=== PATIENT | male | born 1945 | race African-American/Black ===

== ENCOUNTER 2021-02-20 21:34 | Emergency (ER) | payer MEDICARE, OTHER ==
[~2021-02-20] VITALS: Ht 182.9 cm; Wt 94.3 kg
[2021-02-20] MEDS ORDERED: Flonase 0.05% N16 GM (21:47)
[2021-02-20] MEDS ORDERED: ALBU90OI INH (21:47)
[2021-02-20 22:04] LABS: BASOPHILS ABSOLUTE AUTO 0.06 K/mm3 (0.00-0.23); BASOPHILS PERCENT AUTO 1 % (0-2); EOSINOPHILS PERCENT AUTO 5 % (0-6); Hematocrit 43.7 % (37.0-53.0); IMMATURE GRAN ABSOLUTE AUTO 0.02 K/mm3 (0.00-0.10); IMMATURE GRAN PERCENT AUTO 0 % (0-1); LYMPHOCYTES ABSOLUTE AUTO 2.16 K/mm3 (0.84-5.20); LYMPHOCYTES PERCENT AUTO 28 % (21-46); MONOCYTES PERCENT AUTO 13 % (4-13); Mean Corpuscular HGB 28.5 pg (26.0-34.0); Mean Corpuscular Volume 89 fL (80-100); Mean Platelet Volume 11.1 fL (9.1-12.4); NEUTROPHILS ABSOLUTE AUTO 4.17 K/mm3 (1.96-9.15); NEUTROPHILS PERCENT AUTO 53 % (41-73); Platelet Count 162 K/mm3 (150-400); RDW Coefficient Variation 13.8 % (11.7-14.2); RDW Standard Deviation 45.1 fL (35.1-46.3); Red Blood Cell Count 4.92 M/mm3 (4.30-5.90); White Blood Cell Count 7.81 K/mm3 (4.00-11.30)
[2021-02-20 22:41] LABS: Influenza A, PCR NEGATIVE (NEGATIVE); Influenza B, PCR NEGATIVE (NEGATIVE); Resp Syncytial Virus, PCR NEGATIVE (NEGATIVE); SARS-Cov-2 (COVID-19) PCR, MMC NEGATIVE (NEGATIVE)
[2021-02-20 22:55] LABS: Alanine Aminotransfer (ALT/SGP 22 U/L (12-78); Albumin, Blood 3.4 g/dL (3.4-5.0); Albumin/Globulin Ratio 0.8 (0.8-1.8); Alk Phos 91 U/L (50-136); Anion Gap 8 mmol/L (6-16); Aspartate Aminotrans (AST/SGOT 49 U/L (12-37); Bilirubin, Total 0.4 mg/dL (0.1-1.0); Blood Urea Nitrogen 6 mg/dL (8-24); CO2, Blood 24 mmol/L (21-32); Calcium, Blood 8.6 mg/dL (8.5-10.1); Chloride, Blood 108 mmol/L (98-108); Creatinine, Blood 0.85 mg/dL (0.60-1.20); Globulin, Blood 4.2 g/dL (2.2-4.0); Glomerular Filtration Rate >60 (60-); Glucose, Blood 105 mg/dL (70-99); Potassium, Blood 4.5 mmol/L (3.5-5.5); Sodium, Blood 140 mmol/L (136-145); Total Protein, Blood 7.6 g/dL (6.4-8.2)
[2021-02-21] LABS: Troponin I <0.015 ng/mL (0.000-0.040)
[2021-02-21] MEDS ORDERED: LEVO750 PO (00:41)
[2021-02-21] MEDS ORDERED: PRED20 PO (00:41)
== END 2021-02-21 01:15 | disposition home or self-care (01) ==
LOC: ER 21:34
PROVIDERS: Emergency Medicine
DX: J44.1 Chronic obstructive pulmonary disease with (acute) exacerbation (principal); Z20.822 Contact with and (suspected) exposure to COVID-19; F17.200 Nicotine dependence, unspecified, uncomplicated
CPT/HCPCS: 0241U; 71045; 80053; 84484; 85025; 93005; 93010; 94644; 99285-25; A9270

== ENCOUNTER 2021-10-15 11:44 | Day surgery (SDC) | payer OTHER ==
[~2021-10-15] VITALS: Ht 182.9 cm; Wt 94.4 kg
[~2021-10-15 11:44] MED LIST: ALBU90OI INH; Flonase 0.05% N16 GM; LEVO750 PO; PRED20 PO
[2021-10-15] MEDS ORDERED: TRAZ50 PO (12:29)
== END 2021-10-15 14:04 | disposition home or self-care (01) ==
LOC: ORSCSDS 11:44
PROVIDERS: Ophthalmology
PROC: 08RJ3JZ Replacement of Right Lens with Synthetic Substitute, Percutaneous Approach (ICD-10-PCS; principal; 2021-10-15 13:00)
DX: H25.11 Age-related nuclear cataract, right eye (principal); J44.9 Chronic obstructive pulmonary disease, unspecified; I10 Essential (primary) hypertension; Z79.899 Other long term (current) drug therapy
CPT/HCPCS: J2001; J2250; J3010; J3301; V2632

== ENCOUNTER 2022-02-27 04:41 | Inpatient (IN) | payer OTHER ==
[~2022-02-27] VITALS: Ht 182.9 cm; Wt 86.5 kg
[~2022-02-27 04:41] MED LIST changes: +AZIT250 PO; +CARVEDILOL3.125 MG PO; +IBUP800 PO; +IPRAT-ALBUT 0.5-3 ML INH; +OMEP20ER PO; +REMERON30 M8 PO; +Robaxin750 MG PO; +TAMSULOSIN HCL0.4 M1 PO; +TRAM50 PO; +TRAZ50 PO
[2022-02-27 05:20] LABS: BASOPHILS ABSOLUTE AUTO 0.06 K/mm3 (0.00-0.23); BASOPHILS PERCENT AUTO 0 % (0-2); EOSINOPHILS ABSOLUTE AUTO 0.02 K/mm3 (0.00-0.68); EOSINOPHILS PERCENT AUTO 0 % (0-6); Hemoglobin 11.2 g/dL (13.5-17.5); IMMATURE GRAN ABSOLUTE AUTO 0.09 K/mm3 (0.00-0.10); IMMATURE GRAN PERCENT AUTO 1 % (0-1); LYMPHOCYTES ABSOLUTE AUTO 0.87 K/mm3 (0.84-5.20); LYMPHOCYTES PERCENT AUTO 6 % (21-46); MONOCYTES ABSOLUTE AUTO 1.27 K/mm3 (0.16-1.47); MONOCYTES PERCENT AUTO 8 % (4-13); Mean Corpuscular HGB 22.1 pg (26.0-34.0); Mean Corpuscular HGB Conc 30.3 g/dL (31.5-36.5); Mean Corpuscular Volume 73 fL (80-100); Mean Platelet Volume 9.6 fL (9.1-12.4); NEUTROPHILS ABSOLUTE AUTO 13.51 K/mm3 (1.96-9.15); NEUTROPHILS PERCENT AUTO 85 % (41-73); Platelet Count 219 K/mm3 (150-400); RDW Coefficient Variation 17.8 % (11.7-14.2); RDW Standard Deviation 46.4 fL (35.1-46.3); Red Blood Cell Count 5.06 M/mm3 (4.30-5.90); White Blood Cell Count 15.82 K/mm3 (4.00-11.30)
[2022-02-27 05:42] LABS: Albumin, Blood 3.2 g/dL (3.4-5.0); Albumin/Globulin Ratio 0.6 (0.8-1.8); Bilirubin, Total 1.1 mg/dL (0.1-1.0); Bun/Creatinine Ratio 13.6 (12.0-20.0); Calcium, Blood 9.4 mg/dL (8.5-10.1); Creatinine, Blood 1.25 mg/dL (0.60-1.20); Globulin, Blood 5.7 g/dL (2.2-4.0); Potassium, Blood 3.4 mmol/L (3.5-5.5); Total Protein, Blood 8.9 g/dL (6.4-8.2)
[2022-02-27 05:58] LABS: Influenza A, PCR NEGATIVE (NEGATIVE); Influenza B, PCR NEGATIVE (NEGATIVE); Resp Syncytial Virus, PCR NEGATIVE (NEGATIVE); SARS-Cov-2 (COVID-19) PCR, MMC NEGATIVE (NEGATIVE)
[2022-02-27 06:25] LABS: Phosphorus, Blood 3.1 mg/dL (2.5-4.9)
[2022-02-27 11:24] LABS: Source, Urine Clean Catch
[2022-02-27 11:28] LABS: Appearance, Urine Clear (Clear); Bilirubin, Urine Neg (Neg); Blood, Urine Neg (Neg); Color, Urine Yellow (P-Yellow); Glucose Qualitative, Urine Neg (Neg); Ketones, Urine 1+ (Neg); Leukocyte Esterase, Urine 1+ (Neg); Nitrite, Urine Neg (Neg); Protein, Urine 2+ (Neg); Urobilinogen, Urine 1+ (Normal)
[2022-02-27 11:40] LABS: Red Blood Cells, Urine 0-2 /hpf (0-2); Squamous Epithelial Cells Not Seen /hpf (Few)
[2022-02-27 11:42] LABS: Bacteria Mod /hpf
[2022-02-27 11:43] LABS: Mucus Light (0-Heavy)
[2022-02-27 11:47] LABS: Renal Tubular Epi Cast 0-2 /lpf (0)
--- NOTE | 2022-02-27 11:56 | NUR ---
UPDATE TOOK PT TO BSC. PT AUDIBLY WHEEZING AND SOB. RT CALLED FOR BREATHING TX. RT IN ROOM, ASKED FOR THIS RN TO ASK MD FOR BD PROTOCOL AND AIRDUO. CALL PLACED TO MD OLIVIER. MD OLIVIER WITH ORDERS FOR BD PROTOCOL AND AIRDUO BID.
--- NOTE | 2022-02-27 16:41 | NUR ---
updated Updated pt's , Raquel. Can be reached at [phone]
--- NOTE | 2022-02-27 17:53 | NUR ---
SHIFT SUMMARY PT ALERT, ORIENTED, SLEEPY. SP02>90% ON 2L NC. PT AUDIBLY WHEEZY THIS SHIFT, CALL PLACED TO RT FOR BREATHING TX. DYSPNEA W/ AMBULATION, KEEPING PT TO BSC D/T SOB, URINAL TO VOID . TELEMETRY SHOWED AFIB HR 100'S UPON CARE ASSUMPTION. AROUND 1400, PT CONVERTED TO NSR W/ PAC & PVC'S, HR 60'S-70'S. K+ INFUSED PER EMAR. ABX INFUSED PER EMAR. PT'S , YOHAAN, STOPPED BY, LEFT NUMBER, SEE PREVIOUS NOTE. PT SLEEPING IN ROOM, CALL LIGHT IN REACH.
--- NOTE | 2022-02-27 19:53 | NUR ---
ASSUMED PT CARE FORM BOOKER HU ON . PT RESTING IN BED, DOWSY, OPENS EYES BRIEFLY WHEN ADDRESSED BUT UNABLE TO KEEP AWAKE. REMOVED COVERS AND SHIFTED PT. PT WAKES UP, ABLE TO HAVE INTERACTIVE CONVERSATION WTIHOUT FALLING ASLEEP. INDICATES HE IS NOT USUALLY THIS SLEEPY AT HOME. ORIENTED X 4. DENIES FEELINGS OF SOB OR CHEST PAIN. SATING AT 96% ON 1 LPM, REMOVED FROM O2, STILL SATING AT 93%, WILL MONITOR. BED BATH PROVIDED FOR COMFORT. SITTING UP IN BED EATING DINNER. CALL LIGHT IN REACH.
--- NOTE | 2022-02-27 21:17 | NUR ---
PT IS NOW WIDE AWAKE, SITTING UP IN BED WATCHING TV. ABLE TO FEED SELF DINNER. NO SIGNS OF DROWSYNESS AT THIS TIME.
[2022-02-28 04:46] LABS: BASOPHILS ABSOLUTE AUTO 0.03 K/mm3 (0.00-0.23); BASOPHILS PERCENT AUTO 0 % (0-2); EOSINOPHILS ABSOLUTE AUTO 0.49 K/mm3 (0.00-0.68); EOSINOPHILS PERCENT AUTO 2 % (0-6); Hematocrit 29.9 % (37.0-53.0); Hemoglobin 8.9 g/dL (13.5-17.5); IMMATURE GRAN ABSOLUTE AUTO 0.63 K/mm3 (0.00-0.10); IMMATURE GRAN PERCENT AUTO 3 % (0-1); LYMPHOCYTES PERCENT AUTO 1 % (21-46); MONOCYTES ABSOLUTE AUTO 1.05 K/mm3 (0.16-1.47); MONOCYTES PERCENT AUTO 4 % (4-13); Mean Corpuscular HGB 21.8 pg (26.0-34.0); Mean Corpuscular HGB Conc 29.8 g/dL (31.5-36.5); Mean Corpuscular Volume 73 fL (80-100); Mean Platelet Volume 10.3 fL (9.1-12.4); NEUTROPHILS ABSOLUTE AUTO 21.45 K/mm3 (1.96-9.15); NEUTROPHILS PERCENT AUTO 90 % (41-73); Platelet Count 190 K/mm3 (150-400); RDW Coefficient Variation 17.5 % (11.7-14.2); RDW Standard Deviation 46.5 fL (35.1-46.3); Red Blood Cell Count 4.08 M/mm3 (4.30-5.90); White Blood Cell Count 23.95 K/mm3 (4.00-11.30)
--- NOTE | 2022-02-28 04:57 | NUR ---
SHIFT SUMMARY: NO ACUTE CHANGES DURING THIS SHIFT. PT WIDE AWAKE UNTIL APPROXIMATELY 0000. SLEEPING THROUGHOUT NIGHT, REPSONDS TO NOISE BUT DOES NOT WAKE COMPLETELY. WILL MONITOR. PT ON RA WHEN SLEEPING WITH O2 SATS MAINTAINING O2> 92%. CALL LIGHT IN REACH.
[2022-02-28 05:03] LABS: Bun/Creatinine Ratio 17.8 (12.0-20.0); Calcium, Blood 8.5 mg/dL (8.5-10.1); Creatinine, Blood 1.01 mg/dL (0.60-1.20); Potassium, Blood 3.7 mmol/L (3.5-5.5)
[2022-02-28] MEDS ORDERED: FURO20 PO (10:18)
[2022-02-28] MEDS ORDERED: LISI20 PO (10:20)
[2022-02-28] MEDS ORDERED: METOPROLOL SUCC25 MG PO (10:21)
[2022-02-28] MEDS ORDERED: BACLOFEN10 M4 PO (10:35)
[2022-02-28] MEDS ORDERED: NAPROXEN500 MG PO (10:35)
[2022-02-28] MEDS ORDERED: AZIT500 PO (10:48)
[2022-02-28] MEDS ORDERED: CEFD300 PO (10:48)
[2022-02-28] MEDS ORDERED: PRED20 PO (10:49)
[2022-02-28] MEDS ORDERED: TRAM50 PO (10:50)
--- NOTE | 2022-02-28 14:08 | NUR ---
DISCHARGE PT ALERT, ORIENTED. SP02>90% ON RA, VSS. PT AMBULATED TO WHEELCHAIR INDEPENDENTLY. DAUGHTER IN ROOM TO HELP GET PT DRESSED. IV REMOVED. TELEMETRY REMOVED. PT WHEELED TO ER ENTRANCE, DAUGHTER RIDE IN PRIVATE VEHICLE. PT W/ ALL PT'S BELONGS.
== END 2022-02-28 13:15 | disposition home or self-care (01) | DRG 871 ==
LOC: ER 04:41 → PCU 06:01
PROVIDERS: Student in an Organized Health Care Education/Training Program; ADMIT Internal Medicine
DX: A41.9 Sepsis, unspecified organism (principal); J18.9 Pneumonia, unspecified organism; J96.21 Acute and chronic respiratory failure with hypoxia; N17.9 Acute kidney failure, unspecified; E87.20 Acidosis, unspecified; R65.20 Severe sepsis without septic shock; N40.0 Benign prostatic hyperplasia without lower urinary tract symptoms; I50.9 Heart failure, unspecified; I11.0 Hypertensive heart disease with heart failure; F17.210 Nicotine dependence, cigarettes, uncomplicated; J43.9 Emphysema, unspecified; N28.9 Disorder of kidney and ureter, unspecified; E87.6 Hypokalemia; Z20.822 Contact with and (suspected) exposure to COVID-19; Z88.0 Allergy status to penicillin; Z79.899 Other long term (current) drug therapy; Z79.51 Long term (current) use of inhaled steroids; Z79.52 Long term (current) use of systemic steroids; Z79.891 Long term (current) use of opiate analgesic; Z79.2 Long term (current) use of antibiotics; Z99.81 Dependence on supplemental oxygen
CPT/HCPCS: 0241U; 36415; 71045; 80048; 80053; 81001; 83605; 83880; 84100; 84484; 85025; 87086; 93005; 93010; 94640; 94644; 94664; 94760; 94762; 96374; 96375; 99285-25; A9270; J0456; J0696; J1650; J2930; J3480; J7030; J7050

== ENCOUNTER 2022-04-21 10:40 | Inpatient (IN) | payer OTHER ==
[~2022-04-21] VITALS: Ht 182.9 cm; Wt 85.2 kg
[~2022-04-21 10:40] MED LIST changes: +AZIT500 PO; +BACLOFEN10 M4 PO; +CEFD300 PO; +FURO20 PO; -IPRAT-ALBUT 0.5-3 ML INH; +IPRAT-ALBUT 0.5-3 ML NEB; +LISI20 PO; +METOPROLOL SUCC25 MG PO; +NAPROXEN500 MG PO; +TRAZ100 PO; -TRAZ50 PO
[2022-04-21 11:08] LABS: BASOPHILS ABSOLUTE AUTO 0.05 K/mm3 (0.00-0.23); BASOPHILS PERCENT AUTO 1 % (0-2); EOSINOPHILS ABSOLUTE AUTO 0.46 K/mm3 (0.00-0.68); EOSINOPHILS PERCENT AUTO 7 % (0-6); Hematocrit 34.6 % (37.0-53.0); Hemoglobin 9.9 g/dL (13.5-17.5); IMMATURE GRAN ABSOLUTE AUTO 0.01 K/mm3 (0.00-0.10); IMMATURE GRAN PERCENT AUTO 0 % (0-1); LYMPHOCYTES ABSOLUTE AUTO 2.07 K/mm3 (0.84-5.20); LYMPHOCYTES PERCENT AUTO 32 % (21-46); MONOCYTES ABSOLUTE AUTO 0.66 K/mm3 (0.16-1.47); MONOCYTES PERCENT AUTO 10 % (4-13); Mean Corpuscular HGB 20.7 pg (26.0-34.0); Mean Corpuscular HGB Conc 28.6 g/dL (31.5-36.5); Mean Corpuscular Volume 72 fL (80-100); Mean Platelet Volume 10.6 fL (9.1-12.4); NEUTROPHILS ABSOLUTE AUTO 3.23 K/mm3 (1.96-9.15); NEUTROPHILS PERCENT AUTO 50 % (41-73); Platelet Count 194 K/mm3 (150-400); RDW Standard Deviation 45.8 fL (35.1-46.3); Red Blood Cell Count 4.79 M/mm3 (4.30-5.90); White Blood Cell Count 6.48 K/mm3 (4.00-11.30)
[2022-04-21 11:42] LABS: Ethanol (Alcohol), Blood, Med <3 mg/dL
[2022-04-21 11:43] LABS: Alanine Aminotransfer (ALT/SGP 18 U/L (12-78); Albumin, Blood 2.9 g/dL (3.4-5.0); Albumin/Globulin Ratio 0.6 (0.8-1.8); Alk Phos 106 U/L (50-136); Anion Gap 4 mmol/L (6-16); Aspartate Aminotrans (AST/SGOT 19 U/L (12-37); Bilirubin, Total 0.5 mg/dL (0.1-1.0); Blood Urea Nitrogen 8 mg/dL (8-24); Bun/Creatinine Ratio 8.1 (12.0-20.0); CO2, Blood 31 mmol/L (21-32); Chloride, Blood 106 mmol/L (98-108); Creatinine, Blood 0.98 mg/dL (0.60-1.20); Globulin, Blood 4.9 g/dL (2.2-4.0); Glomerular Filtration Rate 79 (60-); Glucose, Blood 112 mg/dL (70-99); Potassium, Blood 3.1 mmol/L (3.5-5.5); Sodium, Blood 141 mmol/L (136-145); Total Protein, Blood 7.8 g/dL (6.4-8.2)
[2022-04-21 12:03] LABS: CHOL/HDL RATIO 4.4; Cholesterol 148 mg/dL (50-200); HDL Cholesterol 34 mg/dL (>39); LDL/HDL RATIO 2.8; Low Density Lipoprotein Chol 95 mg/dL (0-110); Triglycerides 94 mg/dL (30-160); Very Low Density Lipoprot Chol 18 mg/dL (6-32)
[2022-04-21 16:14] LABS: U Amphetamine Screen Not Detected; U Barbituate Screen Not Detected; U Benzodiazapine Screen Not Detected; U Buprenorphine Screen Not Detected; U Cannabinoids Screen DETECTED; U Cocaine Screen Not Detected; U Methadone Screen Not Detected; U Methamphetamine Screen Not Detected; U Opiates Screen Not Detected; U Oxycodone Screen Not Detected; U Phencyclidine Screen Not Detected; U Propoxyphene Screen Not Detected
--- NOTE | 2022-04-21 16:29 | NUR ---
RN COMPLETED A SEMINOLE SWALLOW EVAL WITH THE PATIENT. HE WAS ABLE TO STICK OUT HIS TONGUE AND MOVE IT SIDE TO SIDE, HIS FACIAL SYMMETRY IS EVEN AND HE WAS ABLE TO PUFF UP HIS CHEEKS WITH AIR AND HOLD. WHEN GIVEN 90 ML OF WATER WHILE SITTING UPRIGHT AT 90 DEGREES, THE PATIENT DID COUGH AND SAID HE FELT THAT THE WATER WENT DOWN HIS AIRWAY. PO MEDS WERE HELD AT THIS TIME.
--- NOTE | 2022-04-21 17:17 | NUR ---
PATIENT IS ALERT AND ORIENTED AND COOPERATIVE WITH CARE. LEFT ARM IS FLACCID. PATIENT IS ABLE TO MOVE HIS LLE SLIGHTLY BUT UNABLE TO LIFT, PUSH OR PULL. PATIENT IS BEDREST AT THIS TIME. WILL USE THE URINAL. FOWLER SWALLOW EVAL COMPLETED BY RN, PATIENT FAILED THIS AND REMAINS NPO. DR. GREENBERG NOTIFIED OF THIS AND HE DID CHANGE PO K-DUR TO IV BUT NOTHING ELSE TO IV. ST WILL SEE THE PATIENT FIRST THING IN THE MORNING. NO C/O PAIN. RT SAW THE PATIENT AND GAVEHIM A BREATHING TREATMENT AND SET HIM UP WITH CONTINUOUS PULSE OXIMETRY. ON RA. EXPIRATORY WHEEZE IN ALL LOBES. PT IS HYPERTENSIVE. WILL CONTINUE TO MONITOR
--- NOTE | 2022-04-21 17:26 | NUR ---
PATIENT IS ON TELEMETRY AND CONTINUOUS PULSE OXIMETRY. HIS HR IS HANGING OUTIN THE LOW 50'S AND DROPS TO 48 BPM PERIODICALLY ACCORDING TO THE SHERIFFS. DR. GREENBERG HAS BEEN NOTFIED OF THIS AND ASKED THAT HE BE NOTIFIED IF THE PATIENT BECOMES SYMPTOMATIC AND/OR HIS PULSE DROPS TO 30'S. SHERIFFS ASKED TO CALL RN IF HR DROPS BELOW 48 BPM
[2022-04-21] MEDS ORDERED: Methocarbamol500 MG PO (22:08)
[2022-04-21] MEDS ORDERED: REMERON30 M9 PO (22:12)
[2022-04-22 06:05] LABS: Hematocrit 32.8 % (37.0-53.0); Hemoglobin 9.5 g/dL (13.5-17.5); Mean Corpuscular HGB 20.9 pg (26.0-34.0); Mean Corpuscular Volume 72 fL (80-100); Mean Platelet Volume 10.1 fL (9.1-12.4); Platelet Count 172 K/mm3 (150-400); RDW Coefficient Variation 17.9 % (11.7-14.2); RDW Standard Deviation 45.7 fL (35.1-46.3); Red Blood Cell Count 4.54 M/mm3 (4.30-5.90); White Blood Cell Count 5.98 K/mm3 (4.00-11.30)
[2022-04-22 06:30] LABS: Bun/Creatinine Ratio 8.3 (12.0-20.0); Calcium, Blood 8.9 mg/dL (8.5-10.1); Creatinine, Blood 0.84 mg/dL (0.60-1.20); Potassium, Blood 3.2 mmol/L (3.5-5.5)
--- NOTE | 2022-04-22 08:00 | NUR ---
pt laying in bed with eyes open, denies pain, speech in to see him, lungs have exp wheeze t/o, resp even and unlabored, no cough noted, on r/a, resp even and unlabored, hrr, tele in place running sb per monitor, see strip, no edema noted, ppp+1, cap refill <3sec, vs stable, afebrile, iv site to lac is clear and patent, btx4, abd flat soft nontender, voids via briefs, and urinal, skin c/w/d, left side is flacid, to arm, cant move leg but can move toes, diet advance by speech, call light in reach.
--- NOTE | 2022-04-22 11:37 | NUR ---
Spiritual care consult conducted. Patient is lying in bed and alert. He tells me that he had a stroke and then explains about the frustrations of being able to think it but but quite say it. He talks about his SO and his hopes that she will arrive soon. He states that this whole event has been scary and that he leans on Raquel for his stability. He says that he has improved but still has a ways to go. He struggles with communication and so I cut my visit short. I provided therapeutic listening and a calming presence. Patient welcomes another visit and states that he feels more at peace after our conversation. I will continue to remian available to patient and family.
[2022-04-22] MEDS ORDERED: LISI20 PO (15:04)
[2022-04-22] MEDS ORDERED: METOPROLOL SUCC25 MG PO (15:05)
[2022-04-22] MEDS ORDERED: SYMBICORT 16010.2 GM INH (15:06)
--- NOTE | 2022-04-22 16:12 | NUR ---
pt was medicated with percocet, she states she had a small amount of emisis, but is no longer naseated, and is fine to take percocet, gave cracker first. reports pain 11/16. will be moving pt to a lift room when available, call light in reach.
--- NOTE | 2022-04-22 18:09 | NUR ---
pt had an uneventful day, no acute changes, feels that his foot is getting better, at bedside most of the day, declined a shower today, call light in reach.
--- NOTE | 2022-04-22 18:18 | NUR ---
pt laying in bed watching tv, spouce was in this afternoon, he had an mri this am, got him up to recliner this late afternoon, no acute changes this shift. call light in reach.
[2022-04-23 06:50] LABS: BASOPHILS ABSOLUTE AUTO 0.06 K/mm3 (0.00-0.23); BASOPHILS PERCENT AUTO 1 % (0-2); EOSINOPHILS ABSOLUTE AUTO 0.49 K/mm3 (0.00-0.68); EOSINOPHILS PERCENT AUTO 8 % (0-6); Hematocrit 32.1 % (37.0-53.0); Hemoglobin 9.3 g/dL (13.5-17.5); IMMATURE GRAN ABSOLUTE AUTO 0.01 K/mm3 (0.00-0.10); IMMATURE GRAN PERCENT AUTO 0 % (0-1); LYMPHOCYTES PERCENT AUTO 26 % (21-46); MONOCYTES ABSOLUTE AUTO 0.56 K/mm3 (0.16-1.47); MONOCYTES PERCENT AUTO 9 % (4-13); Mean Corpuscular Volume 73 fL (80-100); Mean Platelet Volume 9.6 fL (9.1-12.4); NEUTROPHILS ABSOLUTE AUTO 3.39 K/mm3 (1.96-9.15); NEUTROPHILS PERCENT AUTO 55 % (41-73); Platelet Count 156 K/mm3 (150-400); RDW Coefficient Variation 17.6 % (11.7-14.2); Red Blood Cell Count 4.42 M/mm3 (4.30-5.90); White Blood Cell Count 6.11 K/mm3 (4.00-11.30)
[2022-04-23 07:08] LABS: Albumin, Blood 2.8 g/dL (3.4-5.0); Albumin/Globulin Ratio 0.6 (0.8-1.8); Bilirubin, Total 0.4 mg/dL (0.1-1.0); Bun/Creatinine Ratio 6.8 (12.0-20.0); Calcium, Blood 8.6 mg/dL (8.5-10.1); Creatinine, Blood 0.73 mg/dL (0.60-1.20); Globulin, Blood 4.5 g/dL (2.2-4.0); Potassium, Blood 3.3 mmol/L (3.5-5.5); Total Protein, Blood 7.3 g/dL (6.4-8.2)
--- NOTE | 2022-04-23 07:37 | NUR ---
DATA ENTRY MACHINE OPERATOR SUMMARY HELENE IS A VERY PLEASANT A&O X 2-3 GENTLEMAN WHO HAS NOTICABLE WEAKNESS ON HIS LEFT SIDE. HE HAS A SLIGHT LEFT FACIAL DROOP, MINIMAL MOVEMENT IN HIS LEFT ARM AND SOME GROSS MOVEMENT IN HIS LEG. HE IS ABLE TO WIGGLE HIS TOES. SKIN REMAINS INTACT ALTHOUGH HE IS INCONTINENT OF URINE. TAKES HIS PILLS ONE AT A TIME IN APPLESAUCE, BUT TOSSES HIS HEAD BACK TO SWALLOW AND MUST BE PROMPTED TO TUCK CHIN TO AVOID CHOKING.
[2022-04-23 14:33] LABS: Percent Saturation 4.4 % (20.0-50.0)
--- NOTE | 2022-04-23 17:07 | NUR ---
SHIFT SUMMARY PT AXO, PLEASANT AND COOPERATIVE WITH CARE. LEFT SIDE FLACIDITY WITH SOME LEFT FACIAL DROOP. PATIENT WORKED WITH PHYSICAL THERAPY, SEE NOTE. ELEVATED BP NOTED AT START OF SHIFT. DR RICO NOTIFIED AT 0816, CARVEDILOL HELD. LASIX AND LISINOPRIL GIVEN PER EMAR, AT 0830. AT 1030 BP STILL ELEVATED AT 176/80, HYDRALZINE GIVEN PER EMAR. DR RICO NOTIFIED AND AMLODIPINE ORDERED. PT CONTINUES TO BE UPPER 160'S SYSTOLICALLY, WILL CONTINUE TO MONITOR. PT DENIES PAIN, SOB AND NV. BED IN LOW POSITION, CALL LIGHT WITHIN REACH. PT ON TELE, SINUS VIKRAM 52-58.
[2022-04-24 06:19] LABS: BASOPHILS ABSOLUTE AUTO 0.06 K/mm3 (0.00-0.23); BASOPHILS PERCENT AUTO 1 % (0-2); EOSINOPHILS ABSOLUTE AUTO 0.42 K/mm3 (0.00-0.68); EOSINOPHILS PERCENT AUTO 6 % (0-6); Hematocrit 35.3 % (37.0-53.0); Hemoglobin 10.4 g/dL (13.5-17.5); IMMATURE GRAN ABSOLUTE AUTO 0.02 K/mm3 (0.00-0.10); IMMATURE GRAN PERCENT AUTO 0 % (0-1); LYMPHOCYTES ABSOLUTE AUTO 1.36 K/mm3 (0.84-5.20); LYMPHOCYTES PERCENT AUTO 19 % (21-46); MONOCYTES PERCENT AUTO 9 % (4-13); Mean Corpuscular HGB 21.1 pg (26.0-34.0); Mean Corpuscular HGB Conc 29.5 g/dL (31.5-36.5); Mean Corpuscular Volume 72 fL (80-100); Mean Platelet Volume 10.3 fL (9.1-12.4); NEUTROPHILS ABSOLUTE AUTO 4.59 K/mm3 (1.96-9.15); NEUTROPHILS PERCENT AUTO 65 % (41-73); Platelet Count 190 K/mm3 (150-400); RDW Coefficient Variation 18.1 % (11.7-14.2); RDW Standard Deviation 45.7 fL (35.1-46.3); RETICULOCYTE ABSOLUTE 0.0572 M/mm3 (0.0200-0.1100); RETICULOCYTE COUNT PERCENT 1.16 % (0.50-2.50); Red Blood Cell Count 4.93 M/mm3 (4.30-5.90); White Blood Cell Count 7.05 K/mm3 (4.00-11.30)
[2022-04-24 06:34] LABS: Bun/Creatinine Ratio 7.9 (12.0-20.0); Calcium, Blood 9.1 mg/dL (8.5-10.1); Creatinine, Blood 0.76 mg/dL (0.60-1.20); Potassium, Blood 3.3 mmol/L (3.5-5.5)
[2022-04-24] MEDS ORDERED: AMLO10 PO (07:56)
[2022-04-24] MEDS ORDERED: ASPI81CH PO (07:56)
[2022-04-24] MEDS ORDERED: FERSU300 PO (07:57)
[2022-04-24] MEDS ORDERED: ATOR80 PO (07:57)
--- NOTE | 2022-04-24 07:58 | NUR ---
MANAGER SEARCH SUMMARY NO CHANGES NOTED FOR EDWARD OTHER THAN IT DOES APPEAR THAT HE IS ABLE TO PARTICIPATE IN MOVING HIS LEFT LEG WHEN STAFF ARE CHANGING BED LINENS JUST A LITTLE BIT MORE THAN THE PREVIOUS NIGHT. PATIENT IS A REAL ASPIRATION CONCERN. HE COUGHS EACH TIME HE GETS A BITE OF APPLESAUCE WITH HIS MEDS. EVEN WITH ALL PRECAUTIONS TAKEN. SPEECH THERAPY WILL BE IN TUESDAY, HOWEVER, SINCE HE IS GOING TODAY TO [place], AN EVALUATION CAN BE DONE TODAY
[2022-04-24 09:20] LABS: SARS-Cov-2 (COVID-19) PCR, MMC NEGATIVE (NEGATIVE)
[2022-04-24] MEDS ORDERED: POTCHL20ER PO (09:39)
--- NOTE | 2022-04-24 14:44 | NUR ---
PT AWAKE AT START OF SHIFT, DURING SHIFT REPORT, ATTEMPTING TO GET OOB. PT ASSISTED BACK INTO BED D/T L SIDE WEAKNESS/FLACCIDITY. PER REPORT, PT ADMITTED 5 DAYS AGO FOR ACUTE STROKE. PT WITH L FACIAL DROOP, L ARM FLACCID, AND LLE VERY WEAK. PER REPORT, PT HAVING SWALLOWING ISSUES AND NEEDING SP EVAL. PT REFUSED TO TAKE MEDS WITH APPLESAUCE, BUT DID WELL TAKING MEDS ON A SPOON AND DRINKING THICKENED LIQUID. NO SWALLOWING DIFFICULTY AT THAT TIME. PT DID NOT WANT TO EAT BREAKFAST THIS AM. DIFFICULT TO UNDERSTAND WHY. PER REPORT, PT TO D/C TO [facility] TODAY. MORNING SHOW [employer] WORKED ON DETAILS AND TRANSPORT ARRANGED. STAT COVID COMPLETE. PT TRANSPORTED BY EMS VIA GURNEY. REPORT CALLED TO ISAAC HU AT [facility] @ 11:20.
== END 2022-04-24 10:44 | disposition home health service (06) | DRG 65 ==
LOC: ER 10:40 → MEDS 12:44
PROVIDERS: Emergency Medicine; Nurse Practitioner Acute Care; Student in an Organized Health Care Education/Training Program; ADMIT Internal Medicine
DX: I63.9 Cerebral infarction, unspecified (principal); G81.94 Hemiplegia, unspecified affecting left nondominant side; R29.708 NIHSS score 8; Z23 Encounter for immunization; Z20.822 Contact with and (suspected) exposure to COVID-19; R29.810 Facial weakness; F10.10 Alcohol abuse, uncomplicated; I50.9 Heart failure, unspecified; F17.210 Nicotine dependence, cigarettes, uncomplicated; N40.0 Benign prostatic hyperplasia without lower urinary tract symptoms; K21.9 Gastro-esophageal reflux disease without esophagitis; E87.6 Hypokalemia; D50.9 Iron deficiency anemia, unspecified; R91.1 Solitary pulmonary nodule; J43.9 Emphysema, unspecified; Z99.81 Dependence on supplemental oxygen
CPT/HCPCS: 36415; 70496; 70498; 70551; 80048; 80053; 80061; 82607; 82728; 82746; 83036; 83540; 83550; 83735; 85025; 85027; 85045; 90686; 92610; 93005; 93010; 93308; 93321; 94640; 94664; 94760; 94762; 97112; 97112-CO; 97162; 97166; 97530; 97535; 99285-25; A9270; G0480; J0360; J1650; J3480; J7030; J7040; J7050; Q3014; Q9967; U0004

== ENCOUNTER 2022-07-21 15:04 | Inpatient (IN) | payer OTHER ==
[~2022-07-21] VITALS: Ht 182.9 cm; Wt 81.7 kg
[~2022-07-21 15:04] MED LIST changes: +AMLO10 PO; +ASPI81CH PO; +ATOR80 PO; +FERSU300 PO; +Methocarbamol500 MG PO; -OMEP20ER PO; +PANT40 PO; +POTCHL20ER PO; +REMERON30 M9 PO; +SYMBICORT 16010.2 GM INH
[2022-07-21 17:14] LABS: BASOPHILS ABSOLUTE AUTO 0.07 K/mm3 (0.00-0.23); BASOPHILS PERCENT AUTO 1 % (0-2); EOSINOPHILS ABSOLUTE AUTO 0.59 K/mm3 (0.00-0.68); EOSINOPHILS PERCENT AUTO 9 % (0-6); Hematocrit 26.6 % (37.0-53.0); Hemoglobin 7.1 g/dL (13.5-17.5); IMMATURE GRAN ABSOLUTE AUTO 0.02 K/mm3 (0.00-0.10); IMMATURE GRAN PERCENT AUTO 0 % (0-1); LYMPHOCYTES ABSOLUTE AUTO 1.66 K/mm3 (0.84-5.20); LYMPHOCYTES PERCENT AUTO 24 % (21-46); MONOCYTES ABSOLUTE AUTO 0.65 K/mm3 (0.16-1.47); MONOCYTES PERCENT AUTO 9 % (4-13); Mean Corpuscular HGB 18.9 pg (26.0-34.0); Mean Corpuscular HGB Conc 26.7 g/dL (31.5-36.5); Mean Corpuscular Volume 71 fL (80-100); NEUTROPHILS ABSOLUTE AUTO 3.92 K/mm3 (1.96-9.15); NEUTROPHILS PERCENT AUTO 57 % (41-73); Platelet Count 201 K/mm3 (150-400); RDW Coefficient Variation 20.1 % (11.7-14.2); RDW Standard Deviation 49.3 fL (35.1-46.3); Red Blood Cell Count 3.76 M/mm3 (4.30-5.90); White Blood Cell Count 6.91 K/mm3 (4.00-11.30)
[2022-07-21 17:18] LABS: Mean Platelet Volume 10.9 fL (9.1-12.4)
[2022-07-21 17:31] LABS: Albumin, Blood 3.1 g/dL (3.4-5.0); Albumin/Globulin Ratio 0.7 (0.8-1.8); Bilirubin, Total 0.4 mg/dL (0.1-1.0); Creatinine, Blood 0.87 mg/dL (0.60-1.20); Globulin, Blood 4.3 g/dL (2.2-4.0); Total Protein, Blood 7.4 g/dL (6.4-8.2)
[2022-07-21 19:46] LABS: International Normalized Ratio 1.14; Percent Saturation 8.7 % (20.0-50.0); Prothrombin Time Results 11.9 Sec (9.7-11.5)
[2022-07-21 21:30] LABS: Hemoglobin 6.6 g/dL (13.5-17.5)
[2022-07-21 22:14] VITALS: BP 118/66
[2022-07-21 23:14] VITALS: BP 129/72
[2022-07-22] VITALS (9 sets, daily range): BP systolic 109–133; BP diastolic 57–80
[2022-07-22 03:33] LABS: BASOPHILS ABSOLUTE AUTO 0.02 K/mm3 (0.00-0.23); BASOPHILS PERCENT AUTO 0 % (0-2); EOSINOPHILS ABSOLUTE AUTO 0.62 K/mm3 (0.00-0.68); EOSINOPHILS PERCENT AUTO 5 % (0-6); Hematocrit 28.1 % (37.0-53.0); IMMATURE GRAN ABSOLUTE AUTO 0.04 K/mm3 (0.00-0.10); IMMATURE GRAN PERCENT AUTO 0 % (0-1); LYMPHOCYTES ABSOLUTE AUTO 0.52 K/mm3 (0.84-5.20); LYMPHOCYTES PERCENT AUTO 4 % (21-46); MONOCYTES ABSOLUTE AUTO 0.59 K/mm3 (0.16-1.47); MONOCYTES PERCENT AUTO 5 % (4-13); Mean Corpuscular HGB 20.7 pg (26.0-34.0); Mean Corpuscular HGB Conc 28.5 g/dL (31.5-36.5); Mean Corpuscular Volume 73 fL (80-100); Mean Platelet Volume 10.9 fL (9.1-12.4); NEUTROPHILS ABSOLUTE AUTO 10.06 K/mm3 (1.96-9.15); NEUTROPHILS PERCENT AUTO 85 % (41-73); Platelet Count 217 K/mm3 (150-400); RDW Coefficient Variation 21.1 % (11.7-14.2); RDW Standard Deviation 53.9 fL (35.1-46.3); Red Blood Cell Count 3.86 M/mm3 (4.30-5.90); White Blood Cell Count 11.85 K/mm3 (4.00-11.30)
--- NOTE | 2022-07-22 03:48 | NUR ---
BLOOD DOCUMENTATION NOTE. CONTINUED FROM ER AND FINISHED INFUSION OF PRBC, PT POLINA; WELL, LAG=BS DRAWN PER PRO.
[2022-07-22 03:53] LABS: Bun/Creatinine Ratio 18.2 (12.0-20.0); Calcium, Blood 8.5 mg/dL (8.5-10.1); Creatinine, Blood 0.82 mg/dL (0.60-1.20); Potassium, Blood 4.4 mmol/L (3.5-5.5)
--- NOTE | 2022-07-22 04:21 | NUR ---
SHIFT SUMMARY ER ADMIT AND ADMISSION DONE, PRBC CONTINUED FROM ER AND FINISHED IN PT ROOM, POLINA WELL. NO S/S DISTRESS PT ABLE TO COMMUNICATE NEEDS BUT NEEDS TIME TO PROCESS THOUGHT DUE TO HX CVA. FOLLOW UP BY MD REGARDING ANTICOUAGULANT ON DISCHARGE. PT COMFORTABLE CONT MONITORING
[2022-07-22 09:28] LABS: Hematocrit 32.4 % (37.0-53.0)
--- NOTE | 2022-07-22 13:18 | NUR ---
NURSE NOTE PATIENT INCREASINGLY CONFUSED AND TRYING TO GET OUT OF BED. CHARGE NURSE NOTIFIED. PATIENT IS BEING TRANSFERRED TO ROOM 350 WHEN ROOM IS CLEAN. REPORT GIVEN TO MARITZA HU.
--- NOTE | 2022-07-22 14:29 | NUR ---
TRANSFER NOTE- PT TRANSFERED TO SCU FROM MEDICAL FLOOR FOR SAFETY THE PT IS A FALL RISK. PT ALERT AND ORIENED TO SELF AND FAMILY. PT CURRENTLY NPO FOR EGD PLANNED FOR THIS AFTERNOON.
[2022-07-22 15:30] LABS: Hematocrit 32.6 % (37.0-53.0); Hemoglobin 9.3 g/dL (13.5-17.5)
--- NOTE | 2022-07-22 16:29 | NUR ---
Amador Paws warming gown applied. Patient confirms NPO status and agrees with scheduled surgery. History, Chart, Medications and Allergies reviewed before start of procedure.Pre-Op teaching done. Pt verbalizes understanding.
--- NOTE | 2022-07-22 16:35 | NUR ---
07/22/22 1635 Kandis Dow History, Chart, Medications and Allergies reviewed before start of procedure. 3-LEAD EKG REVIEWED WITH PHYSICIAN PRIOR TO START OF PROCEDURE. MONITOR INTACT WITH CONTINUOUS PULSE OXIMETRY, CONTINUOUS END TITAL CO2, AND INTERMITTENT BLOOD PRESSURE. O2 VIA POM 10L INTACT THROUGHOUT SEDATION/PROCEDURE.
--- NOTE | 2022-07-22 16:44 | NUR ---
SHIFT SUMMARY- PT HAS HAD NO ACUTE CHANGE SINCE HE TRANSFERED TO THIS ROOM. PT WAS TAKEN A LITTLE WHILE AGO, TO DAY SURGERY FOR AN UPPER ENDOSCOPY. PT WAS CHANGED AND PLACED IN A CLEAN GOWN AND LINNEN CHANGE WAS PERFORMED. PT HAS URINARY INCONTINENCE AND HE DOES NOT KNOW WHEN HE HAS GONE. PPT IS A 2P MAX ASSIST FOR TRANSFERS. HE HAS NOT ATTEMPTED TO GET OOB SINCE HIS TRANSFER TO THIS UNIT. PT SHOULD BE BACK IN HIS ROOM BY SHIFT CHANGE. WILL PASS ON IN BEDSIDE REPORT F THE PT IS BACK BY THEN.
[2022-07-22 21:42] LABS: Hematocrit 29.6 % (37.0-53.0); Hemoglobin 8.2 g/dL (13.5-17.5)
--- NOTE | 2022-07-23 04:30 | NUR ---
SHIFT SUMMARY NOC PT A/O 2/3. PLEASANT AND COOPERATIVE WITH CARE. PT HGB ON NOC 8.2. AWAITING MORNING LABS. PT STILL ON O2 2L/NC MAINTAINING SPO2 > 94%. PT IS CURRENTLY RESTING WITH BED ALARM ON, BED IN LOWEST POSITION, AND CALL LIGHT WITHIN REACH.
[2022-07-23 05:31] LABS: BASOPHILS ABSOLUTE AUTO 0.02 K/mm3 (0.00-0.23); BASOPHILS PERCENT AUTO 0 % (0-2); EOSINOPHILS PERCENT AUTO 12 % (0-6); Hematocrit 31.3 % (37.0-53.0); Hemoglobin 8.6 g/dL (13.5-17.5); IMMATURE GRAN ABSOLUTE AUTO 0.02 K/mm3 (0.00-0.10); IMMATURE GRAN PERCENT AUTO 0 % (0-1); LYMPHOCYTES ABSOLUTE AUTO 0.71 K/mm3 (0.84-5.20); LYMPHOCYTES PERCENT AUTO 8 % (21-46); MONOCYTES ABSOLUTE AUTO 0.57 K/mm3 (0.16-1.47); MONOCYTES PERCENT AUTO 6 % (4-13); Mean Corpuscular HGB 20.2 pg (26.0-34.0); Mean Corpuscular HGB Conc 27.5 g/dL (31.5-36.5); Mean Corpuscular Volume 74 fL (80-100); Mean Platelet Volume 10.6 fL (9.1-12.4); NEUTROPHILS ABSOLUTE AUTO 6.79 K/mm3 (1.96-9.15); NEUTROPHILS PERCENT AUTO 74 % (41-73); Platelet Count 215 K/mm3 (150-400); RDW Coefficient Variation 21.4 % (11.7-14.2); RDW Standard Deviation 55.5 fL (35.1-46.3); Red Blood Cell Count 4.25 M/mm3 (4.30-5.90); White Blood Cell Count 9.21 K/mm3 (4.00-11.30)
[2022-07-23 05:54] LABS: Albumin/Globulin Ratio 0.8 (0.8-1.8); Bilirubin, Total 0.7 mg/dL (0.1-1.0); Bun/Creatinine Ratio 13.2 (12.0-20.0); Creatinine, Blood 0.68 mg/dL (0.60-1.20); Globulin, Blood 3.8 g/dL (2.2-4.0); Magnesium, Blood 1.9 mg/dL (1.6-2.4); Phosphorus, Blood 3.7 mg/dL (2.5-4.9); Potassium, Blood 4.1 mmol/L (3.5-5.5); Total Protein, Blood 6.8 g/dL (6.4-8.2)
[2022-07-23 07:24] VITALS: BP 143/59
[2022-07-23 10:11] VITALS: BP 123/85
[2022-07-23] MEDS ORDERED: BACTRIM DS TAB1 EAC6 PO (15:16)
[2022-07-23 15:39] LABS: Influenza A, PCR NEGATIVE (NEGATIVE); Influenza B, PCR NEGATIVE (NEGATIVE); Resp Syncytial Virus, PCR NEGATIVE (NEGATIVE); SARS-Cov-2 (COVID-19) PCR, MMC NEGATIVE (NEGATIVE)
--- NOTE | 2022-07-23 16:54 | NUR ---
DISCHARGE NOTE- PT WAS DISCHARGED BACK TO [facility]. PT WAS TAKEN VIA TRANSPORT BACK TO [facility]. HARD COPY SCRIPTS IN THE PACKET. TELEPHONE REPORT COMPLETED WITH HONG RN. PT HAD NO S&S OF DISTRESS NOTED AT THE TIME OF DISCHARGE.
== END 2022-07-23 16:27 | DRG 811 ==
LOC: ER 15:04 → MEDS 21:53
PROVIDERS: Emergency Medicine; Family Medicine; Internal Medicine; Nurse Practitioner Acute Care; Student in an Organized Health Care Education/Training Program; ADMIT Internal Medicine
PROC: 30233N1 Transfusion of Nonautologous Red Blood Cells into Peripheral Vein, Percutaneous Approach (ICD-10-PCS; principal; 2022-07-21)
PROC: 0W3P8ZZ Control Bleeding in Gastrointestinal Tract, Via Natural or Artificial Opening Endoscopic (ICD-10-PCS; 2022-07-22)
DX: D62 Acute posthemorrhagic anemia (principal); K22.11 Ulcer of esophagus with bleeding; I69.354 Hemiplegia and hemiparesis following cerebral infarction affecting left non-dominant side; N40.0 Benign prostatic hyperplasia without lower urinary tract symptoms; J44.9 Chronic obstructive pulmonary disease, unspecified; K21.9 Gastro-esophageal reflux disease without esophagitis; F10.21 Alcohol dependence, in remission; K76.9 Liver disease, unspecified; R00.1 Bradycardia, unspecified; F17.210 Nicotine dependence, cigarettes, uncomplicated; T18.2XXA Foreign body in stomach, initial encounter; Z20.822 Contact with and (suspected) exposure to COVID-19; S62.012A Displaced fracture of distal pole of navicular [scaphoid] bone of left wrist, initial encounter for closed fracture; K31.89 Other diseases of stomach and duodenum; X58.XXXA Exposure to other specified factors, initial encounter; I10 Essential (primary) hypertension; Q27.39 Arteriovenous malformation, other site; D50.9 Iron deficiency anemia, unspecified; K44.9 Diaphragmatic hernia without obstruction or gangrene; Z88.5 Allergy status to narcotic agent; Z79.51 Long term (current) use of inhaled steroids; Z79.899 Other long term (current) drug therapy; Z79.811 Long term (current) use of aromatase inhibitors; Z79.82 Long term (current) use of aspirin; Z87.19 Personal history of other diseases of the digestive system; Z99.81 Dependence on supplemental oxygen; Z86.19 Personal history of other infectious and parasitic diseases
CPT/HCPCS: 0241U; 36415; 36430; 73100; 73200; 80048; 80053; 82272; 83540; 83550; 83735; 84100; 85014; 85018; 85025; 85610; 86850; 86900; 86901; 86923; 93971; 94640; 94664; 94760; 96365; 96366; 96367; 96375; 97110; 97162; 97166; 97530; 97535; 99285-25; A9270; C9113; J0696; J2354; J7030; J7050; J7120; P9016

== ENCOUNTER 2022-09-15 13:20 | Observation (INO) | payer OTHER ==
[~2022-09-15] VITALS: Ht 170.2 cm; Wt 77.1 kg
[~2022-09-15 13:20] MED LIST changes: +BACTRIM DS TAB1 EAC6 PO
[2022-09-15] MEDS ORDERED: ENOX30I (14:11)
[2022-09-15] MEDS ORDERED: CLOP75 (14:11)
[2022-09-15] MEDS ORDERED: OMEP20ER (14:11)
[2022-09-15 14:30] LABS: BASOPHILS ABSOLUTE AUTO 0.06 K/mm3 (0.00-0.23); BASOPHILS PERCENT AUTO 1 % (0-2); EOSINOPHILS ABSOLUTE AUTO 0.39 K/mm3 (0.00-0.68); EOSINOPHILS PERCENT AUTO 5 % (0-6); Hematocrit 27.9 % (37.0-53.0); Hemoglobin 7.7 g/dL (13.5-17.5); IMMATURE GRAN ABSOLUTE AUTO 0.03 K/mm3 (0.00-0.10); IMMATURE GRAN PERCENT AUTO 0 % (0-1); LYMPHOCYTES ABSOLUTE AUTO 1.75 K/mm3 (0.84-5.20); LYMPHOCYTES PERCENT AUTO 22 % (21-46); MONOCYTES ABSOLUTE AUTO 0.57 K/mm3 (0.16-1.47); MONOCYTES PERCENT AUTO 7 % (4-13); Mean Corpuscular HGB 20.1 pg (26.0-34.0); Mean Corpuscular HGB Conc 27.6 g/dL (31.5-36.5); Mean Corpuscular Volume 73 fL (80-100); Mean Platelet Volume 10.7 fL (9.1-12.4); NEUTROPHILS ABSOLUTE AUTO 5.23 K/mm3 (1.96-9.15); NEUTROPHILS PERCENT AUTO 65 % (41-73); Platelet Count 191 K/mm3 (150-400); RDW Coefficient Variation 17.3 % (11.7-14.2); RDW Standard Deviation 46.2 fL (35.1-46.3); Red Blood Cell Count 3.83 M/mm3 (4.30-5.90); White Blood Cell Count 8.03 K/mm3 (4.00-11.30)
[2022-09-15 14:39] LABS: Albumin, Blood 3.1 g/dL (3.4-5.0); Albumin/Globulin Ratio 0.7 (0.8-1.8); Bilirubin, Total 0.2 mg/dL (0.1-1.0); Bun/Creatinine Ratio 21.4 (12.0-20.0); Calcium, Blood 8.9 mg/dL (8.5-10.1); Creatinine, Blood 0.75 mg/dL (0.60-1.20); Globulin, Blood 4.5 g/dL (2.2-4.0); Potassium, Blood 3.9 mmol/L (3.5-5.5); Total Protein, Blood 7.6 g/dL (6.4-8.2)
[2022-09-15 17:38] VITALS: BP 121/61
--- NOTE | 2022-09-15 17:46 | NUR ---
ADMISSION PT ORIENTED TO ROOM AND GIVEN CALL LIGHT. WATER PROVIDED. URINAL AT BEDSIDE. UV CALLED TO GET MED REC AND HEALTH HISTORY- FAX NUMBER GIVEN. VS REVIEWED. PT LS CLEAR & BREATHING EASY/UMLABORED. PT DENIES OTHER NEEDS AT THIS TIME. PT DAUGHTER, TAYLOR NOTIFIED OF ADMISSION.
[2022-09-15] MEDS ORDERED: FERSU300 PO (18:16)
[2022-09-15] MEDS ORDERED: BISA10S PR (18:17)
[2022-09-15] MEDS ORDERED: CARV3.125 PO (18:18)
[2022-09-15] MEDS ORDERED: AMLO10 PO (18:18)
[2022-09-15] MEDS ORDERED: ASCO500 PO (18:19)
[2022-09-15] MEDS ORDERED: CLARISPRAY9.9 M1 (18:21)
[2022-09-15] MEDS ORDERED: FURO20 PO (18:21)
[2022-09-15] MEDS ORDERED: Robaxin750 MG PO (18:22)
[2022-09-15] MEDS ORDERED: MIRT30 PO (18:23)
[2022-09-15] MEDS ORDERED: DULCOLAX400 MG/5 M PO (18:23)
[2022-09-15] MEDS ORDERED: POTCHL20ER PO (18:23)
[2022-09-15] MEDS ORDERED: PROAIR RESPICL90 MCG INH (18:24)
[2022-09-15] MEDS ORDERED: PANT40 PO (18:24)
[2022-09-15] MEDS ORDERED: SYMBICORT 160-4.6 GM INH (18:25)
[2022-09-15 18:29] VITALS: BP 132/77
[2022-09-15 19:05] VITALS: BP 129/85
--- NOTE | 2022-09-16 04:15 | NUR ---
SHIFT SUMMARY PT COMPLETED HIS TRANSFUSION AT BEGINNING OF SHIFT WITH NO ISSUES. PT HAS BEEN SLEEPING FOR MOST OF SHIFT. PT DENIES ANY SOB, CX PAIN OR N/V. CALL LIGHT IN REACH AND BED ALARM ON FOR SAFETY.
[2022-09-16 05:49] VITALS: BP 116/63
[2022-09-16 06:10] LABS: BASOPHILS ABSOLUTE AUTO 0.06 K/mm3 (0.00-0.23); BASOPHILS PERCENT AUTO 1 % (0-2); EOSINOPHILS ABSOLUTE AUTO 0.43 K/mm3 (0.00-0.68); EOSINOPHILS PERCENT AUTO 7 % (0-6); Hematocrit 25.8 % (37.0-53.0); Hemoglobin 7.6 g/dL (13.5-17.5); IMMATURE GRAN ABSOLUTE AUTO 0.01 K/mm3 (0.00-0.10); IMMATURE GRAN PERCENT AUTO 0 % (0-1); LYMPHOCYTES ABSOLUTE AUTO 2.01 K/mm3 (0.84-5.20); LYMPHOCYTES PERCENT AUTO 30 % (21-46); MONOCYTES ABSOLUTE AUTO 0.59 K/mm3 (0.16-1.47); MONOCYTES PERCENT AUTO 9 % (4-13); Mean Corpuscular HGB 21.5 pg (26.0-34.0); Mean Corpuscular HGB Conc 29.5 g/dL (31.5-36.5); Mean Corpuscular Volume 73 fL (80-100); Mean Platelet Volume 10.4 fL (9.1-12.4); NEUTROPHILS ABSOLUTE AUTO 3.52 K/mm3 (1.96-9.15); NEUTROPHILS PERCENT AUTO 53 % (41-73); Platelet Count 192 K/mm3 (150-400); RDW Coefficient Variation 17.7 % (11.7-14.2); RDW Standard Deviation 47.4 fL (35.1-46.3); Red Blood Cell Count 3.54 M/mm3 (4.30-5.90); White Blood Cell Count 6.62 K/mm3 (4.00-11.30)
[2022-09-16 06:34] LABS: Albumin, Blood 2.8 g/dL (3.4-5.0); Albumin/Globulin Ratio 0.8 (0.8-1.8); Bilirubin, Total 0.6 mg/dL (0.1-1.0); Bun/Creatinine Ratio 19.7 (12.0-20.0); Calcium, Blood 8.7 mg/dL (8.5-10.1); Creatinine, Blood 0.71 mg/dL (0.60-1.20); Globulin, Blood 3.7 g/dL (2.2-4.0); Magnesium, Blood 1.6 mg/dL (1.6-2.4); Potassium, Blood 3.8 mmol/L (3.5-5.5); Total Protein, Blood 6.5 g/dL (6.4-8.2)
[2022-09-16 07:17] VITALS: BP 132/69
--- NOTE | 2022-09-16 15:58 | NUR ---
SHIFT SUMMARY PT RESTING QUIETLY AWAKE AT START OF SHIFT, DURING SHIFT REPORT. DR POWERS CALLED TO CK ON PT'S NPO STATUS. PT OK TO EAT ICE AND HAVE WATER UNTIL 11:OO AND THEN NPO FOR EGD. PT CONTINUES TO WAIT FOR PROCEDURE. PT IS INCONTINENT OF URINE. A&O TO SELF AND FAMILY ONLY. 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 CALL LT IN REACH.
[2022-09-16 16:28] VITALS: BP 102/73
--- NOTE | 2022-09-16 16:54 | NUR ---
09/16/22 1867 Pedro Luis Rousseau History, Chart, Medications and Allergies reviewed before start of procedure.EKG MONITORED DURING PROCEDURE.O2 VIA POM MASK. Bite Block Placed,WILL REMOVE AFTER PROCEDURE. See Anesthesia record.
--- NOTE | 2022-09-16 18:45 | NUR ---
PT RETURNED FROM EGD. VSS; SEE CHART. PT SITTING UP IN BED EATING DINNER TOLERATING WELL. PT'S S/O AT BS GOING AND COMING FROM PROCEDURE. NO C/O. CALL LT IN REACH.
[2022-09-16 20:11] VITALS: BP 109/58
--- NOTE | 2022-09-17 00:41 | NUR ---
SHIFT SUMMERY.PT RESTING IN BED, AT THIS TIME. PT HAD SEVERAL CONTAINERS OF SURBERT TONIGHT. PT USING CALL LIGHT. PT APPEARS TO BE COMFORTABLE AND ASLEEP AT THIS TIME. CALL LIGHT IN REACH. FIRE SAFETY REVIEWED.
[2022-09-17 04:45] VITALS: BP 117/72
--- NOTE | 2022-09-17 05:57 | NUR ---
PT RESTING IN BED, PT INCONT AND SOMEWHAT CONFUSED. PT FALLOWS DIRECTIONS. PT FALLING BACK TO SLEEP WHEN NOT BEING TALKED TO.
[2022-09-17 07:47] VITALS: BP 109/66
[2022-09-17 15:15] VITALS: BP 116/62
--- NOTE | 2022-09-17 15:46 | NUR ---
SHIFT SUMMARY PT RESTING QUIETLY AT START OF SHIFT. WOKE EASILY FOR CARE. ABLE TO EAT ALL OF BREAKFAST. ABLE TO ASSIST WITH MRI SCREENING QUESTIONS AND SIGN FORM. DR POWERS IN AFTER LUNCH, BUT PT UNABLE TO REMEMBER EATING IT. DR POWERS INFORMED PT OF TUMOR MARKER RESULTS AND LIVER CA DX. PT ABLE TO CALL S/O WITH INFORMATION. S/O REQUESTING HOSPITALIST TO CALL HER AFTER RESULTS OF MRI COMPLETE. PT DOWN AT IMAGING FOR MRI AT THIS TIME. SLIDE TX TO JERAD. BED BATH AND LINEN CHANGE DONE THIS AM. BED ALARM USED FOR SAFETY. WILL CONTINUE TO MX.
--- NOTE | 2022-09-17 18:10 | NUR ---
1745 S/O TO RM AFTER PT RETURNED FROM MRI. S/O REQUESTING DR DUARTE COME TO RM TO EXPLAIN RESULTS. DR DUARTE NOTIFIED AND DID COME TO SPEAK WITH PT AND S/O; ALL QUESTIONS ANSWERED AT THAT TIME. S/O WILL SPEAK WITH BATCH TRUCKER FOR OTHER DETAILS WHEN ONE IS AVAILABLE. PT SITTING UP IN BED EATING DINNER AT THIS TIME. DENIED FURTHER NEEDS. CALL LT IN REACH. BED ALARM ON FOR SAFETY.
[2022-09-17 20:40] VITALS: BP 122/66
[2022-09-18 05:01] VITALS: BP 128/72
--- NOTE | 2022-09-18 06:26 | NUR ---
AOX2, CALLS AT TIMES TO MAKE NEEDS KNOWN, DID NOT ATTEMPT TO GET OOB, NO SKIN ISSUES NOTED, INCONTINENT OF BOWEL AND BLADDER, NO COMPLAINTS OF PAIN, PLEASANT. UNEVENTFUL NIGHT. FIRE SAFETY REVIEWED.
[2022-09-18 07:23] VITALS: BP 150/74
[2022-09-18 07:51] LABS: Hematocrit 26.3 % (37.0-53.0); Hemoglobin 7.7 g/dL (13.5-17.5)
[2022-09-18 15:33] VITALS: BP 109/65
--- NOTE | 2022-09-18 18:06 | NUR ---
SHIFT SUMMARY: NO ACUTE EVENTS. DENIED PAIN. TRANSFERRED TO CHAIR FOR DINNER WITH 2 PERSON AND GAIT BELT. L ARM FLACCID, LLE HAS MINIMAL STRENGTH. INCONTINENT OF B&B, ATTENDS IN PLACE. GOOD APPETITE, TOLERATING PO. A&O X 1, THOUGHT HE WAS HOME SEVERAL TIMES. ASSISTED HIM WITH TELEPHONE, PLACED CALLS TO YOHANA HIS CG/S.O. PLAN IS LIKELY D/C HOME TOMORROW.
[2022-09-18 20:07] VITALS: BP 109/63
--- NOTE | 2022-09-19 04:20 | NUR ---
SLEEPS COMFORTABLY MOST OF SHIFT. CALLS APPROPRIATELY, WANTED TO "GET OUT OF BED TO CHECK ON HIS MEDS" LAST NIGHT, REDIRECTABLE. SAT AT EDGE OF BED AND ATE A SNACK INSTEAD. INCONTINENT OF BOWEL AND BLADDER. L SIDE WEAKNESS ON GENERALIZED DECONDITIONING. PLEASANT, COOPERATIVE, VSS ON RA. FIRE SAFETY REVIEWED.
[2022-09-19 04:23] VITALS: BP 143/74
[2022-09-19 07:17] VITALS: BP 143/72
[2022-09-19] MEDS ORDERED: Acetaminophen325 M1 PO (10:36)
--- NOTE | 2022-09-19 11:24 | NUR ---
[facility] TRANSPORT SET UP FOR 1430 PM [facility]
--- NOTE | 2022-09-19 15:20 | NUR ---
PATIENT DISCHARGED TO HOME VIA [facility]. YOHANA (S.O./CG) WAS IN EARLIER, WAS GIVEN RX FOR ATTENDS, GLOVES, CHUX, AND CLEANING WIPES), VERBALIZED UNDERSTANDING OF D/C INSTRUCTIONS, AND WILL GET IN TOUCH WITH PT'S PCP TOMORROW. PT DRESSED IN HIS OWN CLOTHES, IV SALINE LOCK REMOVED WITHOUT INCIDENT. [facility]. NO PERSONAL BELONGINGS LEFT BEHIND IN ROOM.
== END 2022-09-19 15:20 | disposition home health service (06) ==
LOC: ER 13:20 → MEDS 13:21
PROVIDERS: Internal Medicine; Student in an Organized Health Care Education/Training Program; ADMIT Student in an Organized Health Care Education/Training Program
DX: K31.811 Angiodysplasia of stomach and duodenum with bleeding (principal); K44.9 Diaphragmatic hernia without obstruction or gangrene; K74.60 Unspecified cirrhosis of liver; D64.9 Anemia, unspecified; C22.0 Liver cell carcinoma; I10 Essential (primary) hypertension; J44.9 Chronic obstructive pulmonary disease, unspecified; K21.9 Gastro-esophageal reflux disease without esophagitis; Z87.891 Personal history of nicotine dependence; Z88.0 Allergy status to penicillin; Z88.8 Allergy status to other drugs, medicaments and biological substances; Z79.02 Long term (current) use of antithrombotics/antiplatelets; Z79.899 Other long term (current) drug therapy
CPT/HCPCS: 36415; 36430; 74183; 80053; 82105; 83735; 85014; 85018; 85025; 86850; 86900; 86901; 86923; 93005; 93010; 96374; 99285-25; A9270; A9581; C9113; G0378; J0171; J2371; J2704; J7030; J7120; P9016

== ENCOUNTER 2022-12-20 11:19 | Emergency (ER) | payer OTHER ==
[~2022-12-20] VITALS: Ht 185.4 cm; Wt 81.7 kg
[~2022-12-20 11:19] MED LIST changes: +ASCO500 PO; +Acetaminophen325 M1 PO; +BISA10S PR; +CARV3.125 PO; +CLARISPRAY9.9 M1; +CLOP75; +DULCOLAX400 MG/5 M PO; +ENOX30I; +MIRT30 PO; +OMEP20ER; +PROAIR RESPICL90 MCG INH; +SYMBICORT 160-4.6 GM INH
[2022-12-20 12:42] LABS: BASOPHILS ABSOLUTE AUTO 0.05 K/mm3 (0.00-0.23); BASOPHILS PERCENT AUTO 1 % (0-2); EOSINOPHILS ABSOLUTE AUTO 0.32 K/mm3 (0.00-0.68); EOSINOPHILS PERCENT AUTO 3 % (0-6); Hematocrit 44.6 % (37.0-53.0); Hemoglobin 14.4 g/dL (13.5-17.5); IMMATURE GRAN ABSOLUTE AUTO 0.02 K/mm3 (0.00-0.10); IMMATURE GRAN PERCENT AUTO 0 % (0-1); LYMPHOCYTES ABSOLUTE AUTO 2.52 K/mm3 (0.84-5.20); LYMPHOCYTES PERCENT AUTO 27 % (21-46); MONOCYTES ABSOLUTE AUTO 0.59 K/mm3 (0.16-1.47); MONOCYTES PERCENT AUTO 6 % (4-13); Mean Corpuscular HGB 26.4 pg (26.0-34.0); Mean Corpuscular HGB Conc 32.3 g/dL (31.5-36.5); Mean Corpuscular Volume 82 fL (80-100); NEUTROPHILS ABSOLUTE AUTO 5.83 K/mm3 (1.96-9.15); NEUTROPHILS PERCENT AUTO 63 % (41-73); Platelet Count 166 K/mm3 (150-400); RDW Coefficient Variation 19.7 % (11.7-14.2); RDW Standard Deviation 59.2 fL (35.1-46.3); Red Blood Cell Count 5.46 M/mm3 (4.30-5.90); White Blood Cell Count 9.33 K/mm3 (4.00-11.30)
[2022-12-20 12:52] LABS: Albumin, Blood 3.1 g/dL (3.4-5.0); Albumin/Globulin Ratio 0.6 (0.8-1.8); Bilirubin, Total 0.6 mg/dL (0.1-1.0); Bun/Creatinine Ratio 13.3 (12.0-20.0); Calcium, Blood 9.6 mg/dL (8.5-10.1); Creatinine, Blood 0.6 mg/dL (0.60-1.20); Potassium, Blood 3.5 mmol/L (3.5-5.5); Total Protein, Blood 8.1 g/dL (6.4-8.2)
[2022-12-20 14:08] LABS: International Normalized Ratio 1.1; Prothrombin Time Results 11.5 Sec (9.7-11.5)
[2022-12-20 16:47] LABS: Source, Urine Clean Catch
[2022-12-20 16:58] LABS: Appearance, Urine Clear (Clear); Bilirubin, Urine Neg (Neg); Blood, Urine 2+ (Neg); Color, Urine Yellow (P-Yellow); Glucose Qualitative, Urine Neg (Neg); Ketones, Urine Neg (Neg); Leukocyte Esterase, Urine Neg (Neg); Nitrite, Urine Neg (Neg); Protein, Urine 1+ (Neg); Urobilinogen, Urine 1+ (Normal)
[2022-12-20 17:00] VITALS: BP 167/114
[2022-12-20 17:17] LABS: Bacteria Not Seen /hpf; Hyaline Casts 0-2 /lpf (0-2); Squamous Epithelial Cells Not Seen /hpf (Few); White Blood Cells, Urine 0-2 /hpf (0-5)
== END 2022-12-20 17:25 | disposition short-term general hospital (02) ==
LOC: ER 11:19
PROVIDERS: Student in an Organized Health Care Education/Training Program
DX: G93.89 Other specified disorders of brain (principal); C22.0 Liver cell carcinoma; I10 Essential (primary) hypertension; K74.60 Unspecified cirrhosis of liver; I69.354 Hemiplegia and hemiparesis following cerebral infarction affecting left non-dominant side; I69.320 Aphasia following cerebral infarction; J44.9 Chronic obstructive pulmonary disease, unspecified; F17.210 Nicotine dependence, cigarettes, uncomplicated; Z99.81 Dependence on supplemental oxygen; Z88.0 Allergy status to penicillin; Z79.899 Other long term (current) drug therapy; Z79.51 Long term (current) use of inhaled steroids
CPT/HCPCS: 51702; 70450; 71045; 80053; 81001; 82140; 85025; 85610; 85730; 93005; 93010; 96365; 96374; 96375; 99291-25; J1100; J2150